=== PATIENT | female | born 1975 | race Two or more races ===

== ENCOUNTER 2022-12-24 13:27 | Emergency (ER) | payer OTHER ==
[~2022-12-24] VITALS: Ht 162.6 cm; Wt 61.2 kg
[2022-12-24] MEDS ORDERED: KETOROLAC TROMETHAMINE 30 MG INJ ONE (14:39)
[2022-12-24] MEDS ORDERED: KETOROLAC TROMETHAMINE 30 MG INJ IM ONE (14:45)
[2022-12-24 15:12] LABS: *BILIRUBIN,URIN NEGATIVE (NEGATIVE); *BLOOD, URINE NEGATIVE (NEGATIVE); *CLARITY,URINE CLEAR (CLEAR); *COLOR,URINE YELLOW (YELLOW); *KETONES,URINE NEGATIVE (NEGATIVE); *PROTEIN,URINE NEGATIVE (NEGATIVE); *UROBILINOGEN,URINE 0.2 E.U./dl (NORMAL); LEUKOCYTE ESTERASE ,URINE NEGATIVE (NEGATIVE); NITRITE, URINE NEGATIVE (NEGATIVE); PH,URINE 6.5 (5.0-8.0); UGLUCOSE NEGATIVE (NEGATIVE)
[2022-12-24 15:18] LABS: *URINE HCG, QUAL NEGATIVE (NEGATIVE)
[2022-12-24] MEDS ORDERED: CYCLOBENZAPRINE HCL 10 MG TABLET PO ONE (16:15)
[2022-12-24] MEDS ORDERED: GABAPENTIN 300 MG CAPSULE PO ONE (16:15)
[2022-12-24] MEDS ORDERED: ONDANSETRON ODT 4 MG TAB.RAPDIS SL ONE (16:45)
[2022-12-24] MEDS ORDERED: HYDROMORPHONE 1 MG/1 ML DISP.SYRIN IM ONE (16:45)
[2022-12-24] MEDS ORDERED: ONDANSETRON ODT 4 MG TAB.RAPDIS ONE (16:50)
[2022-12-24] MEDS ORDERED: HYDROMORPHONE 1 MG/1 ML DISP.SYRIN ONE (16:50)
[2022-12-24 17:13] VITALS: BP 128/59; O2SAT 98
[2022-12-24 17:23] LABS: *AMPHETAMINE, URINE NEGATIVE (NEGATIVE); *BARBITURATE, URINE NEGATIVE (NEGATIVE); *BENZODIAZEPINE, URINE POSITIVE (NEGATIVE); *CANNABINOID, URINE NEGATIVE (NEGATIVE); *COCCAINE, URINE NEGATIVE (NEGATIVE); *OPIATE, URINE NEGATIVE (NEGATIVE); *PHENCYCLIDINE SCREEN,URINE NEGATIVE (NEGATIVE); FENTANYL, URINE NEGATIVE (NEGATIVE)
== END 2022-12-24 17:20 | disposition home or self-care (01) ==
LOC: ER 13:27
DX: S16.1XXA Strain of muscle, fascia and tendon at neck level, initial encounter (principal); S39.012A Strain of muscle, fascia and tendon of lower back, initial encounter; G43.909 Migraine, unspecified, not intractable, without status migrainosus; Z88.8 Allergy status to other drugs, medicaments and biological substances; W20.8XXA Other cause of strike by thrown, projected or falling object, initial encounter; Y93.89 Activity, other specified; Y92.89 Other specified places as the place of occurrence of the external cause; Y99.8 Other external cause status
CPT/HCPCS: 99285; 70450; 84703; 71250; 72125; 74176; 96372 ×2; 80307; 81003; J1885; J1170; A4606; A4663; Q0162

== ENCOUNTER 2023-05-31 10:49 | Emergency (ER) | payer MEDICARE, OTHER ==
[~2023-05-31] VITALS: Ht 162.6 cm; Wt 61.2 kg
[2023-05-31] MEDS ORDERED: MORPHINE SULFATE 4 MG/1 ML DISP.SYRIN ONE (12:06)
[2023-05-31] MEDS ORDERED: ONDANSETRON 4 MG/2 ML VIAL ONE (12:06)
[2023-05-31] MEDS: IV NORMAL SALINE 1000 ML BAG IV ONE (12:08)
[2023-05-31] MEDS: ONDANSETRON 4 MG/2 ML VIAL IV ONE (12:09)
[2023-05-31] MEDS: MORPHINE SULFATE 2 MG/1 ML DISP.SYRIN IV ONE (12:09)
[2023-05-31 13:03] VITALS: BP 122/80; TEMP 98; O2SAT 99
== END 2023-05-31 13:19 | disposition home or self-care (01) ==
LOC: ER 10:49
DX: H57.13 Ocular pain, bilateral (principal); G43.909 Migraine, unspecified, not intractable, without status migrainosus; Z60.2 Problems related to living alone; Z88.1 Allergy status to other antibiotic agents
CPT/HCPCS: 99284; 96374; 96375; J2405; J2270; J7040; A4606; A4663

== ENCOUNTER 2023-07-26 11:54 | Emergency (ER) | payer MEDICARE, OTHER ==
[~2023-07-26] VITALS: Ht 160 cm; Wt 61.2 kg
[2023-07-26] MEDS ORDERED: METOCLOPRAMIDE HCL 10 MG/2 ML VIAL ONE (12:28)
[2023-07-26] MEDS ORDERED: KETOROLAC TROMETHAMINE 30 MG INJ ONE (12:28)
[2023-07-26] MEDS ORDERED: diphenhydrAMINE 50 MG/1 ML VIAL ONE (12:28)
[2023-07-26] MEDS: diphenhydrAMINE 50 MG/1 ML VIAL IV ONE (12:42)
[2023-07-26] MEDS: IV NS 1000 ML 1,000 ML IV ONE (12:44)
[2023-07-26] MEDS: METOCLOPRAMIDE HCL 10 MG/2 ML VIAL IV ONE (12:44)
[2023-07-26] MEDS: KETOROLAC TROMETHAMINE 30 MG INJ IVP ONE (12:44)
[2023-07-26] MEDS ORDERED: MORPHINE SULFATE 2 MG/1 ML DISP.SYRIN ONE (13:31)
[2023-07-26] MEDS: MORPHINE SULFATE 4 MG/1 ML DISP.SYRIN IV ONE (13:35)
[2023-07-26 14:09] VITALS: BP 127/80; TEMP 97; O2SAT 99
== END 2023-07-26 14:15 | disposition home or self-care (01) ==
LOC: ER 11:54
DX: G43.911 Migraine, unspecified, intractable, with status migrainosus (principal); Z88.8 Allergy status to other drugs, medicaments and biological substances
CPT/HCPCS: A4606; A4663; J1200; J1885; J2270; J2765; J7040

== ENCOUNTER 2023-09-23 17:50 | Emergency (ER) | payer MEDICARE ==
[~2023-09-23] VITALS: Ht 162.6 cm; Wt 61.2 kg
[2023-09-23] MEDS ORDERED: MAGNESIUM SULFATE/D5W 100 ML ONE (19:10)
[2023-09-23] MEDS ORDERED: KETOROLAC TROMETHAMINE 15 MG INJ ONE (19:10)
[2023-09-23] MEDS ORDERED: METOCLOPRAMIDE HCL 10 MG/2 ML VIAL ONE (19:10)
[2023-09-23] MEDS ORDERED: diphenhydrAMINE 50 MG/1 ML VIAL ONE (19:10)
[2023-09-23] MEDS ORDERED: MORPHINE SULFATE 4 MG/1 ML DISP.SYRIN ONE (19:11)
[2023-09-23] MEDS: MAGNESIUM SULFATE/D5W 100 ML IV SCH (19:20)
[2023-09-23] MEDS: METOCLOPRAMIDE HCL 10 MG/2 ML VIAL IV ONE (19:20)
[2023-09-23] MEDS: diphenhydrAMINE 50 MG/1 ML VIAL IV ONE (19:20)
[2023-09-23] MEDS: MORPHINE SULFATE 4 MG/1 ML DISP.SYRIN IV ONE (19:20)
[2023-09-23] MEDS: IV NORMAL SALINE 500 ML BAG IV ONE (19:20)
[2023-09-23] MEDS: KETOROLAC TROMETHAMINE 15 MG INJ IVP ONE (19:20)
[2023-09-23 20:00] LABS: *BILIRUBIN,URIN NEGATIVE (NEGATIVE); *BLOOD, URINE NEGATIVE (NEGATIVE); *CLARITY,URINE CLEAR (CLEAR); *COLOR,URINE YELLOW (YELLOW); *KETONES,URINE NEGATIVE (NEGATIVE); *PROTEIN,URINE NEGATIVE (NEGATIVE); *UROBILINOGEN,URINE 0.2 E.U./dl (NORMAL); LEUKOCYTE ESTERASE ,URINE NEGATIVE (NEGATIVE); NITRITE, URINE NEGATIVE (NEGATIVE); UGLUCOSE NEGATIVE (NEGATIVE)
[2023-09-23 20:09] LABS: *URINE HCG, QUAL NEGATIVE (NEGATIVE)
[2023-09-23 20:58] VITALS: BP 136/75; TEMP 98; O2SAT 98
== END 2023-09-23 20:52 | disposition home or self-care (01) ==
LOC: ER 17:51
DX: G43.909 Migraine, unspecified, not intractable, without status migrainosus (principal); Z60.2 Problems related to living alone; Z88.1 Allergy status to other antibiotic agents; R10.2 Pelvic and perineal pain
CPT/HCPCS: 99284; 96365; 96375; 81003; 84703; J1200; J1885; J3475; J2765; J2270; J7040

== ENCOUNTER 2023-11-08 16:26 | Emergency (ER) | payer MEDICARE ==
[~2023-11-08] VITALS: Ht 162.6 cm; Wt 61.2 kg
[2023-11-08] MEDS ORDERED: AMLO5TAB4 PO (16:50)
[2023-11-08] MEDS ORDERED: KETOROLAC TROMETHAMINE 60 MG INJ IM ONE (17:14)
[2023-11-08] MEDS ORDERED: diphenhydrAMINE 50 MG/1 ML VIAL ONE (17:14)
[2023-11-08] MEDS ORDERED: METOCLOPRAMIDE HCL 10 MG TABLET ONE (17:14)
[2023-11-08] MEDS: METOCLOPRAMIDE HCL 10 MG TABLET PO ONE (17:30)
[2023-11-08] MEDS: KETOROLAC TROMETHAMINE 60 MG INJ IM ONE (17:31)
[2023-11-08] MEDS: diphenhydrAMINE 50 MG/1 ML VIAL IM ONE (17:31)
[2023-11-08] MEDS ORDERED: MORPHINE SULFATE 2 MG/1 ML DISP.SYRIN ONE (18:02)
[2023-11-08] MEDS: MORPHINE SULFATE 4 MG/1 ML DISP.SYRIN IM ONE (18:07)
[2023-11-08 18:49] VITALS: BP 123/84; O2SAT 100
== END 2023-11-08 18:51 | disposition home or self-care (01) ==
LOC: ER 16:27
DX: G43.901 Migraine, unspecified, not intractable, with status migrainosus (principal); Z79.899 Other long term (current) drug therapy; Z60.2 Problems related to living alone; Z88.1 Allergy status to other antibiotic agents
CPT/HCPCS: 99284; 96372 ×2; J1200; J1885; J2270; A4606; A4663; J8597

== ENCOUNTER 2024-01-05 07:25 | Emergency (ER) | payer MEDICARE ==
[~2024-01-05] VITALS: Ht 162.6 cm; Wt 61.2 kg
[~2024-01-05 07:25] MED LIST: AMLO5TAB4 PO
[2024-01-05] MEDS ORDERED: KETOROLAC TROMETHAMINE 30 MG INJ ONE (08:09)
[2024-01-05] MEDS ORDERED: diphenhydrAMINE 50 MG/1 ML VIAL ONE (08:09)
[2024-01-05] MEDS ORDERED: METOCLOPRAMIDE HCL 10 MG/2 ML VIAL ONE (08:10)
[2024-01-05] MEDS ORDERED: MORPHINE SULFATE 2 MG/1 ML DISP.SYRIN ONE ×2 (08:10→09:44)
[2024-01-05] MEDS: diphenhydrAMINE 50 MG/1 ML VIAL IV ONE (08:28)
[2024-01-05] MEDS: METOCLOPRAMIDE HCL 10 MG/2 ML VIAL IV ONE (08:28)
[2024-01-05] MEDS: MORPHINE SULFATE 2 MG/1 ML DISP.SYRIN IV ONE ×2 (08:28→09:48)
[2024-01-05] MEDS: KETOROLAC TROMETHAMINE 30 MG INJ IVP ONE (08:28)
[2024-01-05] MEDS: IV NORMAL SALINE 1000 ML BAG IV ONE (08:28)
[2024-01-05 10:12] VITALS: BP 140/95; O2SAT 100
== END 2024-01-05 10:14 | disposition home or self-care (01) ==
LOC: ER 07:25
DX: G43.901 Migraine, unspecified, not intractable, with status migrainosus (principal); Z79.899 Other long term (current) drug therapy; Z60.2 Problems related to living alone; Z88.8 Allergy status to other drugs, medicaments and biological substances
CPT/HCPCS: 99284; 96374; 96375; 96361; 96376; J1200; J1885; J2765; J2270 ×2; J7040; A4606; A4663

== ENCOUNTER 2024-03-28 12:04 | Emergency (ER) | payer MEDICARE ==
[~2024-03-28] VITALS: Ht 162.6 cm; Wt 61.2 kg
[2024-03-28] MEDS ORDERED: METOCLOPRAMIDE HCL 10 MG/2 ML VIAL ONE (15:27)
[2024-03-28] MEDS: METOCLOPRAMIDE HCL 10 MG/2 ML VIAL IM ONE (15:41)
[2024-03-28 15:55] VITALS: BP 148/88; TEMP 97.3; O2SAT 100
== END 2024-03-28 15:55 | disposition left against medical advice (07) ==
LOC: ER 12:04
DX: Z13.89 Encounter for screening for other disorder (principal); E03.9 Hypothyroidism, unspecified; G43.909 Migraine, unspecified, not intractable, without status migrainosus; Z79.899 Other long term (current) drug therapy; Z60.2 Problems related to living alone; W19.XXXA Unspecified fall, initial encounter; Y93.K1 Activity, walking an animal; Y92.89 Other specified places as the place of occurrence of the external cause; Y99.8 Other external cause status
CPT/HCPCS: A4606; A4663; J2765

== ENCOUNTER 2024-03-30 08:41 | Emergency (ER) | payer MEDICARE ==
[~2024-03-30] VITALS: Ht 162.6 cm; Wt 61.2 kg
[2024-03-30] MEDS: IV NS 1000 ML 1,000 ML IV ONE (09:24)
[2024-03-30] MEDS ORDERED: diphenhydrAMINE 50 MG/1 ML VIAL ONE (09:26)
[2024-03-30] MEDS ORDERED: KETOROLAC TROMETHAMINE 30 MG INJ ONE (09:26)
[2024-03-30] MEDS ORDERED: METOCLOPRAMIDE HCL 10 MG/2 ML VIAL ONE (09:27)
[2024-03-30] MEDS: KETOROLAC TROMETHAMINE 30 MG INJ IVP ONE (09:37)
[2024-03-30] MEDS: METOCLOPRAMIDE HCL 10 MG/2 ML VIAL IV ONE (09:37)
[2024-03-30] MEDS: diphenhydrAMINE 50 MG/1 ML VIAL IV ONE (09:37)
[2024-03-30] MEDS ORDERED: MAGNESIUM SULFATE/D5W 200 ML ONE (10:30)
[2024-03-30] MEDS ORDERED: MORPHINE SULFATE 2 MG/1 ML DISP.SYRIN ONE (10:31)
[2024-03-30] MEDS: MORPHINE SULFATE 4 MG/1 ML DISP.SYRIN IV ONE (10:37)
[2024-03-30] MEDS: MAGNESIUM SULFATE/D5W 100 ML IV SCH (10:39)
[2024-03-30] MEDS ORDERED: NAPR500T6 PO (11:53)
[2024-03-30] MEDS ORDERED: METO-295 PO (11:53)
[2024-03-30] MEDS ORDERED: DIPH25CA83 PO (11:53)
[2024-03-30 12:24] VITALS: BP 128/70; O2SAT 99
== END 2024-03-30 12:25 | disposition home or self-care (01) ==
LOC: ER 08:50
DX: G43.909 Migraine, unspecified, not intractable, without status migrainosus (principal); I10 Essential (primary) hypertension; Z79.899 Other long term (current) drug therapy; Z60.2 Problems related to living alone; W01.0XXA Fall on same level from slipping, tripping and stumbling without subsequent striking against object, initial encounter; Y93.89 Activity, other specified; Y92.89 Other specified places as the place of occurrence of the external cause; Y99.8 Other external cause status
CPT/HCPCS: A4606; A4663; J1200; J1885; J2270; J2765; J3475; J7040

== ENCOUNTER 2024-06-08 08:31 | Emergency (ER) | payer MEDICARE, OTHER ==
[~2024-06-08 08:31] MED LIST changes: +DIPH25CA83 PO; +METO-295 PO; +NAPR500T6 PO
== END 2024-06-08 08:46 | disposition left against medical advice (07) ==
LOC: ER 08:35
DX: G43.909 Migraine, unspecified, not intractable, without status migrainosus (principal); Z53.21 Procedure and treatment not carried out due to patient leaving prior to being seen by health care provider

== ENCOUNTER 2024-06-10 04:34 | Emergency (ER) | payer MEDICARE, OTHER ==
[~2024-06-10] VITALS: Ht 162.6 cm; Wt 61.2 kg
[2024-06-10] MEDS ORDERED: diphenhydrAMINE 50 MG/1 ML VIAL ONE (05:21)
[2024-06-10] MEDS ORDERED: KETOROLAC TROMETHAMINE 30 MG INJ ONE (05:21)
[2024-06-10] MEDS ORDERED: METOCLOPRAMIDE HCL 10 MG/2 ML VIAL ONE (05:21)
[2024-06-10 05:22] LABS: *BILIRUBIN,URIN 1+ (NEGATIVE); *BLOOD, URINE NEGATIVE (NEGATIVE); *CLARITY,URINE CLEAR (CLEAR); *COLOR,URINE YELLOW (YELLOW); *KETONES,URINE NEGATIVE (NEGATIVE); *PROTEIN,URINE 1+ (NEGATIVE); *UROBILINOGEN,URINE 0.2 E.U./dl (NORMAL); LEUKOCYTE ESTERASE ,URINE NEGATIVE (NEGATIVE); NITRITE, URINE NEGATIVE (NEGATIVE); UGLUCOSE NEGATIVE (NEGATIVE)
[2024-06-10 05:24] LABS: *URINE HCG, QUAL NEGATIVE (NEGATIVE); BASOPHILS % (AUTO) 0.2 % (0.0-2.0); EOSINOPHILS % (AUTO) 0.5 % (0.0-7.0); HEMATOCRIT 39.1 % (31.2-41.9); HEMOGLOBIN 13.2 g/dL (10.9-14.3); LYMPHOCYTES # (AUTO) 1.9 K/uL (0.8-4.8); LYMPHOCYTES % (AUTO) 20.6 % (20.5-51.5); MEAN CORPUSCULAR HEMOGLOBIN 31.5 uug (24.7-32.8); MEAN CORPUSCULAR HGB CONC 34 g/dL (32.3-35.6); MEAN CORPUSCULAR VOLUME 93.6 fL (75.5-95.3); MONOCYTES # (AUTO) 0.6 K/uL (0.1-1.30); MONOCYTES % (AUTO) 6.8 % (0.0-11.0); NEUTROPHILS # (AUTO) 6.5 K/uL (1.8-8.9); NEUTROPHILS % (AUTO) 71.9 % (38.5-71.5); PLATELET COUNT (AUTO) 294 K/uL (179-408); RED BLOOD CELL COUNT(AUTO) 4.18 MIL/uL (3.63-4.92); RED CELL DISTRIBUTION WIDTH 14.5 % (12.3-17.7)
[2024-06-10 05:28] LABS: CALCIUM 8.8 mg/dL (8.5-10.1); CREATININE 0.8 mg/dL (0.6-1.3); POTASSIUM 3.6 mmol/L (3.5-5.1)
[2024-06-10 05:29] LABS: RBC,URINE NONE SEEN /HPF (0-3); WBC,URINE NONE SEEN /HPF (0-3)
[2024-06-10 05:30] LABS: BACTERIA,URINE FEW /HPF (NONE SEEN); MUCUS,URINE MODERATE /LPF (0-FEW); SQUAMOUS EPITHELIAL CELL,UR FEW /HPF (NONE SEEN)
[2024-06-10 05:33] LABS: ALBUMIN 3.9 g/dL (3.4-5.0); BILIRUBIN,TOTAL 0.5 mg/dL (0.2-1.0)
[2024-06-10] MEDS: IV NS 1000 ML 1,000 ML IV ONE (05:35)
[2024-06-10] MEDS: METOCLOPRAMIDE HCL 10 MG/2 ML VIAL IV ONE (05:35)
[2024-06-10] MEDS: KETOROLAC TROMETHAMINE 30 MG INJ IVP ONE (05:35)
[2024-06-10] MEDS: diphenhydrAMINE 50 MG/1 ML VIAL IV ONE (05:35)
[2024-06-10 05:44] LABS: *AMPHETAMINE, URINE NEGATIVE (NEGATIVE); *BARBITURATE, URINE POSITIVE (NEGATIVE); *BENZODIAZEPINE, URINE NEGATIVE (NEGATIVE); *CANNABINOID, URINE NEGATIVE (NEGATIVE); *COCCAINE, URINE NEGATIVE (NEGATIVE); *OPIATE, URINE POSITIVE (NEGATIVE); *PHENCYCLIDINE SCREEN,URINE NEGATIVE (NEGATIVE); FENTANYL, URINE NEGATIVE (NEGATIVE)
[2024-06-10] MEDS ORDERED: MORPHINE SULFATE 2 MG/1 ML DISP.SYRIN ONE (06:23)
[2024-06-10] MEDS: MORPHINE SULFATE 2 MG/1 ML DISP.SYRIN IV ONE (06:24)
[2024-06-10 07:04] VITALS: BP 120/72; O2SAT 99
== END 2024-06-10 07:05 | disposition home or self-care (01) ==
LOC: ER 04:34
DX: G43.909 Migraine, unspecified, not intractable, without status migrainosus (principal); Z79.899 Other long term (current) drug therapy
CPT/HCPCS: 99284; 96374; 96375; 96361; 80053; 81001; 84703; 85025; 36415; 80307; J1885; J1200; J2765; J2270; J7040; A4606; A4663

== ENCOUNTER 2024-12-22 09:20 | Emergency (ER) | payer MEDICARE ==
[~2024-12-22] VITALS: Ht 162.6 cm; Wt 61.2 kg
[2024-12-22] MEDS ORDERED: diphenhydrAMINE 50 MG/1 ML VIAL ONE (10:39)
[2024-12-22] MEDS ORDERED: KETOROLAC TROMETHAMINE 15 MG INJ ONE (10:39)
[2024-12-22] MEDS ORDERED: METOCLOPRAMIDE HCL 10 MG/2 ML VIAL ONE (10:39)
[2024-12-22] MEDS: KETOROLAC TROMETHAMINE 15 MG INJ IVP ONE (10:49)
[2024-12-22] MEDS: IV NORMAL SALINE 1000 ML BAG IV ONE (10:49)
[2024-12-22] MEDS: diphenhydrAMINE 50 MG/1 ML VIAL IVP ONE (10:49)
[2024-12-22] MEDS: METOCLOPRAMIDE HCL 10 MG/2 ML VIAL IV ONE (10:49)
[2024-12-22] MEDS ORDERED: BUPRENORPHINE HCL 2 MG TAB.SUBL SL ONE (11:58)
[2024-12-22] MEDS: BUPRENORPHINE HCL 2 MG TAB.SUBL SL ONE (11:59)
[2024-12-22 12:00] VITALS: BP 151/82
[2024-12-22 12:55] VITALS: BP 151/82; O2SAT 95
== END 2024-12-22 12:56 | disposition home or self-care (01) ==
LOC: ER 09:20
DX: G43.909 Migraine, unspecified, not intractable, without status migrainosus (principal); E03.9 Hypothyroidism, unspecified; Z79.899 Other long term (current) drug therapy
CPT/HCPCS: 99284; 96374; 96361; 96375; J1885; J1200; J2765; J7040; A4606; A4663